=== PATIENT | female | born 1995 | race African-American/Black ===

== ENCOUNTER 2018-01-09 07:33 | Emergency (ER) | payer BC ==
[2018-01-09 08:21] LABS: ADD MAN DIFF? NO
[2018-01-09 08:23] LABS: BASO % 1 % (0-3); EOS # 0.4 x10^3/uL (0.0-0.7); EOS % 6 % (0-3); HEMATOCRIT 31.5 % (36.0-47.0); HEMOGLOBIN 10.7 g/dL (12.0-15.5); LYMPH # 1.9 x10^3/uL (1.0-4.8); LYMPH % 31 % (24-48); MEAN CORPUSCULAR HEMOGLOBIN 27 pg (25-35); MEAN CORPUSCULAR HGB CONC 34 g/dL (31-37); MEAN CORPUSCULAR VOLUME 79 fL (79-100); MONO # 0.4 x10^3/uL (0.0-1.1); MONO % 7 % (0-9); NEUT # 3.4 x10^3uL (1.8-7.7); NEUT % 55 % (31-73); PLATELET COUNT 227 x10^3/uL (140-400); RED BLOOD COUNT 3.97 x10^6/uL (3.50-5.40); RED CELL DISTRIBUTION WIDTH 15.2 % (11.5-14.5); WHITE BLOOD COUNT 6.1 x10^3/uL (4.0-11.0)
[2018-01-09 08:30] LABS: ANION GAP 9 (6-14); BLOOD UREA NITROGEN 8 mg/dL (7-20); BUN/CREATININE RATIO 13 (6-20); CALCIUM 8.6 mg/dL (8.5-10.1); CARBON DIOXIDE 24 mmol/L (21-32); CHLORIDE 104 mmol/L (98-107); CREATININE 0.6 mg/dL (0.6-1.0); GFR 151.3; GLUCOSE 84 mg/dL (70-99); POTASSIUM 3.4 mmol/L (3.5-5.1); SODIUM 137 mmol/L (136-145)
[2018-01-09 08:35] LABS: ALBUMIN 3.1 g/dL (3.4-5.0); ALBUMIN/GLOBULIN RATIO 0.9 (1.0-1.7); ALK PHOS 57 U/L (46-116); ALT (SGPT) 13 U/L (14-59); AST (SGOT) 15 U/L (15-37); TOTAL BILIRUBIN 0.3 mg/dL (0.2-1.0); TOTAL PROTEIN 6.6 g/dL (6.4-8.2)
== END 2018-01-09 09:50 | disposition home or self-care (01) ==
LOC: ER 07:33
DX: O26.851 Spotting complicating pregnancy, first trimester (principal); Z3A.14 14 weeks gestation of pregnancy
CPT/HCPCS: 36415; 76801; 80053; 85025; 99285-25

== ENCOUNTER 2019-06-09 14:47 | Emergency (ER) | payer BC, OTHER ==
[~2019-06-09] VITALS: Ht 167.6 cm; Wt 76.7 kg
[2019-06-09 15:09] VITALS: BP 107/56
[2019-06-09] MEDS ORDERED: PRED50TA PO (15:33)
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
== END 2019-06-09 15:45 | disposition home or self-care (01) ==
LOC: ER 14:47
DX: G56.02 Carpal tunnel syndrome, left upper limb (principal)
CPT/HCPCS: 29125; 99283

== ENCOUNTER 2021-06-13 13:52 | Emergency (ER) | payer BC ==
[~2021-06-13] VITALS: Ht 167.6 cm; Wt 75.7 kg
[~2021-06-13 13:52] MED LIST: PRED50TA PO
[2021-06-13] MEDS ORDERED: DEXAMETHASONE SOD PHOS 20 MG/5 ML VIAL. PO ONE (16:00)
[2021-06-13] MEDS ORDERED: PENICILLIN G BENZATHINE LA 1,200,000 UNIT/2 ML DISP.SYRIN. IM ONE (16:00)
--- NOTE | 2021-06-13 16:12 | ED.ADGEN ---
Past Medical History Past Medical History: No Pertinent History, Other Additional Past Medical Histor: Hypotension. Past Surgical History: Other Additional Past Surgical Histo: Dental surgery. Smoking Status: Current Some Day Smoker Alcohol Use: Occasionally Drug Use: None General Adult EDM: Chief Complaint: SORE THROAT HPI: HPI: Patient is a 25 year old female coming in with 3 days of sore throat. Has had fever and chills. Denies any cough or GI complaints. Had decreased p.o. intake secondary to throat pain. Review of Systems: Review of Systems: All other systems within normal limits except for as noted in the HPI Current Medications: Current Medications Medications (Trade) Dose Ordered Sig/Alfred Start Time Stop Time Status Last Admin Dose Admin Dexamethasone Sodium Phosphate (Decadron) 10 mg 1X ONCE 06/13/21 16:00 06/13/21 16:01 DC Penicillin G Benzathine (Bicillin L-A) 1,200,000 unit 1X ONCE 06/13/21 16:00 06/13/21 16:01 DC Allergies: Allergies: Allergies Coded Allergies Type Severity Reaction Last Updated Verified No Known Drug Allergies 06/13/21 No Physical Exam: PE: Constitutional: Well developed, well nourished, no acute distress, non-toxic appearance. [] HENT: Normocephalic, atraumatic, bilateral external ears normal, nose normal. Posterior and tonsillar exudate [] Eyes: PERRLA, conjunctiva normal, no discharge. [] Neck: No rigidity, supple, no stridor. [] Cardiovascular: Regular rate and rhythm, brisk cap refill [] Lungs & Thorax: Non labored symmetric respirations, no tachypnea or respiratory distress [] Abdomen: Soft, nondistended. Skin: Warm, dry, no erythema, no rash. [] Back: Unremarkable Extremities: No deformities, range of motion grossly intact, no lower extremity edema [] Neurologic: Alert and oriented X 3, no focal deficits noted. [] Psychologic: Affect normal, judgement normal, mood normal. [] Current Patient Data: Vital Signs: Vital Signs Date Time Temp Pulse Resp B/P (MAP) Pulse Ox O2 Delivery O2 Flow Rate FiO2 06/13/21 15:31 98.4 89 20 100/66 (77) 100 Room Air 98.4 EKG: EKG: [] Heart Score: C/O Chest Pain: No Risk Factors: Risk Factors: DM, Current or recent (<one month) smoker, HTN, HLP, family history of CAD, obesity. Risk Scores: Score 0 - 3: 2.5% MACE over next 6 weeks - Discharge Home Score 4 - 6: 20.3% MACE over next 6 weeks - Admit for Clinical Observation Score 7 - 10: 72.7% MACE over next 6 weeks - Early Invasive Strategies Radiology/Procedures: Radiology/Procedures: [] Course & Med Decision Making: Course & Med Decision Making Pertinent Labs and Imaging studies reviewed. (See chart for details) [] Dragon Disclaimer: Dragon Disclaimer: This electronic medical record was generated, in whole or in part, using a voice recognition dictation system. Departure Departure Impression: Primary Impression: Strep pharyngitis Disposition: HOME / SELF CARE / HOMELESS Condition: STABLE Referrals: UNKNOWN PCP NAME (PCP) Patient Instructions: Viral and Bacterial Pharyngitis SARAH VAZQUEZ MD Jun 13, 2021 16:12
[2021-06-13] MEDS ORDERED: KETOROLAC 60 MG/2 ML VIAL. IM ONE (16:15)
[2021-06-13 17:28] VITALS: BP 111/53
== END 2021-06-13 17:28 | disposition home or self-care (01) ==
LOC: ER 13:52
DX: J02.0 Streptococcal pharyngitis (principal); B95.5 Unspecified streptococcus as the cause of diseases classified elsewhere; F17.200 Nicotine dependence, unspecified, uncomplicated
CPT/HCPCS: 96372; 99284; J0561; J1100; J1885